=== PATIENT | female | born 1990 ===

== ENCOUNTER 2019-04-22 06:30 | Day surgery (SDC) | payer OTHER ==
[2019-04-22] MEDS ORDERED: MORGIDOX100 MG PO (11:35)
[2019-04-22] MEDS ORDERED: Tylenol #3 PO (11:35)
== END 2019-04-22 13:40 | disposition home or self-care (01) ==
LOC: CIR.AMB 06:30 → AMB-ENDOS 09:30 → CIR.AMB 10:30
DX: N84.0 Polyp of corpus uteri (principal); D25.0 Submucous leiomyoma of uterus

== ENCOUNTER 2022-12-12 06:05 | Day surgery (SDC) | payer OTHER ==
[~2022-12-12] VITALS: Ht 162.6 cm; Wt 69.4 kg
[~2022-12-12 06:05] MED LIST: MORGIDOX100 MG PO; Tylenol #3 PO
[2022-12-12] MEDS ORDERED: MORGIDOX100 MG PO (08:34)
[2022-12-12] MEDS ORDERED: NAPR500T14 PO (08:34)
== END 2022-12-12 16:50 | disposition home or self-care (01) ==
LOC: CIR.AMB 06:05
PROVIDERS: ATTEND Obstetrics & Gynecology
DX: N84.0 Polyp of corpus uteri (principal); D25.0 Submucous leiomyoma of uterus; N95.0 Postmenopausal bleeding; Z20.822 Contact with and (suspected) exposure to COVID-19; I10 Essential (primary) hypertension